=== PATIENT | female | born 1945 | race Caucasian/White ===

== ENCOUNTER 2022-12-21 14:00 | Observation (INO) | payer MEDICARE ==
[~2022-12-21] VITALS: Ht 160 cm; Wt 45.9 kg
[2022-12-21 12:09] LABS: BASOPHILS % (AUTO) 0.8 % (0.0-5.0); EOSINOPHILS % (AUTO) 2.5 % (0.0-8.0); HEMATOCRIT 35.4 % (36-48); LYMPHOCYTES % (AUTO) 19.1 % (21.0-51.0); MEAN CORPUSCULAR HEMOGLOBIN 32.6 pg (27.0-33.0); MEAN CORPUSCULAR HGB CONC 32.8 g/dL (32.0-36.0); MEAN CORPUSCULAR VOLUME 99.4 fL (79-99); MONOCYTES % (AUTO) 7.4 % (3.0-13.0); NEUTROPHILS % (AUTO) 69.8 % (40.0-77.0); PLATELET COUNT (AUTO) 191 K/uL (130-400); RED BLOOD CELL COUNT(AUTO) 3.56 MIL/uL (4.00-5.50); RED CELL DISTRIBUTION WIDTH 13.2 % (11.0-15.5); WHITE BLOOD COUNT (AUTO) 7.2 K/uL (4.8-10.8)
[2022-12-21 12:34] LABS: INR 0.93 (0.85-1.15); PROTHROMBIN TIME 9.7 SEC (9.6-11.6)
[2022-12-21 12:36] LABS: PARTIAL THROMBOPLASTIN TIME 25.1 SEC (26.3-35.5)
[2022-12-21 12:51] LABS: ALBUMIN 3.8 g/dL (3.5-5.0); BILIRUBIN,DIRECT 0.1 mg/dL (0.0-0.3); CREATININE 6.1 mg/dL (0.5-1.5); POTASSIUM 4.9 mmol/L (3.5-5.1); TOTAL PROTEIN, SERUM 7.5 g/dL (6.0-8.3)
[2022-12-27 14:12] VITALS: BP 165/87
[2022-12-27] MEDS ORDERED: LEVO88CA4 PO (14:47)
[2022-12-27] MEDS ORDERED: FERROUS SULFATE PO (14:47)
[2022-12-27] MEDS ORDERED: AMLO-257 PO (14:47)
[2022-12-27] MEDS ORDERED: FURO40TA5 PO (14:47)
[2022-12-27] MEDS ORDERED: CALC-1125 PO (14:47)
[2022-12-27] MEDS ORDERED: ATOR10 PO (14:47)
[2022-12-27] MEDS ORDERED: CARV6.25 PO (14:47)
[2022-12-27] MEDS ORDERED: MONT-39 PO (14:47)
[2022-12-27] MEDS ORDERED: SODI650T PO (14:47)
[2022-12-27] MEDS ORDERED: CLOP75TA32 PO (14:47)
[2022-12-28] VITALS (18 sets, daily range): BP systolic 122–148; BP diastolic 55–78
[2022-12-28] MEDS ORDERED: BUPIVACAINE/EPI/PF 0.5% 30ML VIAL IJ SCH (07:00)
[2022-12-28] MEDS ORDERED: CEFAZOLIN SODIUM 1 GM VIAL ONE (07:14)
[2022-12-28] MEDS ORDERED: 0.9% NACL 500ML IV.SOLN 500 ML IV ONE (07:14)
[2022-12-28 07:18] LABS: CREATININE 6.4 mg/dL (0.5-1.5); POTASSIUM 4.8 mmol/L (3.5-5.1)
[2022-12-28] MEDS ORDERED: ROCURONIUM 10MG/1ML SYR 10 MG/ML ML ONE (07:51)
[2022-12-28] MEDS ORDERED: LIDOCAINE PF 100MG/5ML (2%) SYRINGE 5ML ONE (07:51)
[2022-12-28] MEDS ORDERED: GLYCOPYRROLATE 1 MG/5 ML SYRINGE ONE (07:51)
[2022-12-28] MEDS ORDERED: PROPOFOL 10 MG/ML 20ML VIAL IV ONE (07:51)
[2022-12-28] MEDS ORDERED: FENTANYL CITRATE PF 50 MCG/1 ML 5ML AMP IV ONE (07:52)
[2022-12-28] MEDS ORDERED: PHENYLEPHRINE HCL 10 MG/ML 1ML VIAL IV ONE (07:54)
[2022-12-28] MEDS ORDERED: CEFAZOLIN SODIUM 2 GM VIAL IVPB PRN (08:00)
[2022-12-28] MEDS ORDERED: 0.9%NACL 1000ML 1,000 ML IV SCH (08:00)
[2022-12-28] MEDS ORDERED: ONDANSETRON 4MG INJ ONE ×2 (08:26→09:21)
[2022-12-28] MEDS ORDERED: NEOSTIGMINE 5MG/5ML SYR IV ONE (08:57)
[2022-12-28] MEDS ORDERED: FENTANYL CITRATE PF 50 MCG/1 ML 2ML VIAL ONE (09:22)
== END 2022-12-28 11:10 | disposition home or self-care (01) ==
LOC: DAHIP 12-28 06:50 → EDSTATUS 12-28 14:00
PROVIDERS: ADMIT Surgery; ATTEND Surgery
DX: I12.0 Hypertensive chronic kidney disease with stage 5 chronic kidney disease or end stage renal disease (principal); Z20.822 Contact with and (suspected) exposure to COVID-19; N18.6 End stage renal disease; E78.00 Pure hypercholesterolemia, unspecified; K66.0 Peritoneal adhesions (postprocedural) (postinfection); I25.2 Old myocardial infarction; Z99.2 Dependence on renal dialysis; Z90.710 Acquired absence of both cervix and uterus; Z79.899 Other long term (current) drug therapy; Z98.890 Other specified postprocedural states
CPT/HCPCS: 80076; 80048 ×2; 85025; 85610; 85730; 87426; 36415 ×2; 71045; 93005; 49324; A6260; G0378; G0379; A4663; A4649 ×3; J7040; J3010 ×2; J0690; J3490 ×2; J2710; J2001; J2704; J2405 ×2; J2370; G0168; C1750; A4215; A4223; A4222; A4221; A4600

== ENCOUNTER → 2023-12-21 | Outpatient (CLI) | payer MEDICARE ==
[~2023-12-21] MED LIST: AMLO-257 PO; ATOR10 PO; CALC-1125 PO; CARV6.25 PO; CLOP75TA32 PO; FERROUS SULFATE PO; FURO40TA5 PO; LEVO88CA4 PO; MONT-39 PO; SODI650T PO
== END | disposition home or self-care (01) ==
LOC: SHCH 08:54
PROVIDERS: ATTEND Student in an Organized Health Care Education/Training Program
DX: I07.1 Rheumatic tricuspid insufficiency (principal); R06.02 Shortness of breath
CPT/HCPCS: 93306